=== PATIENT | female | born 2000 | race Caucasian/White ===

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

== ENCOUNTER 2021-04-08 10:36 | Emergency (ER) | payer OTHER ==
[2021-04-08 10:45] VITALS: RESP 18
[2021-04-08] MEDS ORDERED: ONDANSETRON 4 MG/2 ML VIAL IVP STA (11:01)
[2021-04-08] MEDS ORDERED: SODIUM CHLORIDE 0.9% 1,000 ML IV STA (11:02)
[2021-04-08] MEDS ORDERED: KETOROLAC 15 MG/ML 1 ML VIAL IVP STA (11:02)
[2021-04-08 11:35] LABS: Basophils # (A) 0.1 k/uL (0-0.2); Basophils % (A) 1 %; Eosinophils # (A) 0.2 k/uL (0-0.7); Eosinophils % (A) 2 %; HCT 41.7 % (34.0-46.0); HGB 13.6 gm/dL (11.4-16.0); Lymphocytes # (A) 2.2 k/uL (1.0-4.8); Lymphocytes % (A) 18 %; MCH 28.2 pg (25.0-35.0); MCHC 32.7 g/dL (31.0-37.0); MCV 86.3 fL (80.0-100.0); Mean Platelet Volume 6.3; Monocytes # (A) 0.4 k/uL (0-1.0); Monocytes % (A) 4 %; Neutrophils # (A) 9.1 k/uL (1.3-7.7); Neutrophils % (A) 75 %; Platelet Count 306 k/uL (150-450); RBC 4.84 m/uL (3.80-5.40); RDW 12.6 % (11.5-15.5); WBC 12.1 k/uL (4.0-11.0)
[2021-04-08 11:45] LABS: ALT 16 U/L (4-34); AST 21 U/L (14-36); African American GFR (CKD) >90 (>60 ml/min/1.73 sqM); Albumin 4.6 g/dL (3.5-5.0); Alkaline Phosphatase 87 U/L (38-126); Anion Gap 7 mmol/L; Blood Urea Nitrogen 18 mg/dL (7-17); Calcium 9.5 mg/dL (8.4-10.2); Carbon Dioxide 27 mmol/L (22-30); Chloride 106 mmol/L (98-107); Glucose 109 mg/dL (74-99); Non-African American GFR(CKD) >90 (>60 ml/min/1.73 sqM); Potassium 4.6 mmol/L (3.5-5.1); Sodium 140 mmol/L (137-145); Total Bilirubin 0.2 mg/dL (0.2-1.3); Total Protein 7.4 g/dL (6.3-8.2)
[2021-04-08 12:06] LABS: Appearance,Urine Cloudy (Clear); Bacteria,Urine Occasional /hpf; Bilirubin,Urine Negative (Negative); Blood,Urine Large (Negative); Budding Yeast,Urine Many /hpf; Color,Urine Yellow; Glucose,Urine (UA) Negative (Negative); Ketones,Urine Negative (Negative); Leukocyte Esterase,Urine Small (Negative); Nitrite,Urine Negative (Negative); Protein,Urine 1+ (Negative); RBC,Urine >182 /hpf (0-5); Specific Gravity,Urine 1.021 (1.001-1.035); Squamous Epithelial Cell,Urine 8 /hpf (0-4); Urobilinogen,Urine <2.0 mg/dL (<2.0); WBC,Urine 22 /hpf (0-5)
--- NOTE | 2021-04-08 13:08 | US ---
EXAMINATION TYPE: US kidneys/renal and bladder DATE OF EXAM: 04/08/2021 COMPARISON: NONE CLINICAL HISTORY: Left-sided kidney stone suspected. LLQ pain EXAM MEASUREMENTS: Right Kidney: 10.1 x 5.5 x 4.6 cm Left Kidney: 10.7 x 6.0 x 4.9 cm Right Kidney: No hydronephrosis or masses seen Left Kidney: Mild hydronephrosis visualized Bladder: Not distended Kidneys show normal cortical medullary differentiation. Mild right-sided hydronephrosis present. IMPRESSION: Mild left hydronephrosis
--- NOTE | 2021-04-08 13:11 | ED ---
Abdominal Pain HPI - General Chief Complaint: Abdominal Pain Stated Complaint: lower back & abdominal pain Time Seen by Provider: 04/08/21 10:47 Source: patient Mode of arrival: ambulatory Limitations: no limitations - History of Present Illness Initial Comments: 20-year-old female presents emergency Department with a chief complaint of nausea vomiting. Patient reports the pain started early this morning and it was a sudden onset of left flank tenderness. Patient reports some nausea but denies any vomiting or diarrhea. She denies any obstructive or infectious urinary symptoms. Denies hematuria, hematochezia or melena. Denies any fevers or chi lls. Denies any chest pain or shortness of breath. Denies history of kidney stones. Denies any vaginal symptoms or concern for . - Related Data Previous Rx's Medication Instructions Recorded Ondansetron Odt [Zofran Odt] 4 mg PO Q8HR PRN #10 tab 04/08/21 Tamsulosin [Flomax] 0.4 mg PO DAILY #7 cap 04/08/21 Allergies Allergy/AdvReac Type Severity Reaction Status Date / Time No Known Allergies Allergy Verified 04/08/21 12:20 Review of Systems ROS Statement: Those systems with pertinent positive or pertinent negative responses have been documented in the HPI. ROS Other: All systems not noted in ROS Statement are negative. Past Medical History Past Medical History: No Reported History History of Any Multi-Drug Resistant Organisms: None Reported Past Surgical History: No Surgical Hx Reported Past Psychological History: No Psychological Hx Reported Smoking Status: Never smoker Past Alcohol Use History: None Reported Past Drug Use History: Marijuana General Exam Limitations: no limitations General appearance: alert, in no apparent distress Head exam: Present: atraumatic, normocephalic, normal inspection Eye exam: Present: normal appearance, PERRL, EOMI Pupils: Present: normal accommodation ENT exam: Present: normal exam, normal oropharynx, mucous membranes moist Neck exam: Present: normal inspection, full ROM. Absent: tenderness, lymphade nopathy Respiratory exam: Present: normal lung sounds bilaterally. Absent: respiratory distress, wheezes, rales Cardiovascular Exam: Present: regular rate, normal rhythm, normal heart sounds GI/Abdominal exam: Present: soft, tenderness. Absent: distended, guarding, rebound, rigid Extremities exam: Present: normal inspection, full ROM, normal capillary refill Back exam: Present: normal inspection, full ROM, tenderness, CVA tenderness (L) Neurological exam: Present: alert, oriented X3 Psychiatric exam: Present: normal affect, normal mood Skin exam: Present: warm, dry, intact, normal color Course Vital Signs 04/08/21 04/08/21 10:43 13:37 Temperature 97.9 F 98.3 F Pulse Rate 78 79 Respiratory 18 18 Rate Blood Pressure 133/84 128/79 O2 Sat by Pulse 99 99 Oximetry Medical Decision Making - Medical Decision Making 20-year-old female presented emergency department with a chief complaint of nausea vomiting. On physical examination, left CVA tenderness. UA positive for hematuria large amounts of blood. Ultrasound of the kidneys revealed mild left-sided hydronephrosis. Patient reports a prominent pain after analgesia and IV fluids here. She will be discharged with outpatient follow-up. Also give her Flomax Zofran. Return parameters were discussed with patient was understanding and agreeable. Case discussed with Dr. Sage. - Lab Data Result diagrams: 04/08/21 11:21 04/08/21 11:21 Lab Results 04/08/21 04/08/21 04/08/21 Range/Units 11:21 11:21 11:21 WBC 12.1 H (4.0-11.0) k/uL RBC 4.84 (3.80-5.40) m/uL Hgb 13.6 (11.4-16.0) gm/dL Hct 41.7 (34.0-46.0) % MCV 86.3 (80.0-100.0) fL MCH 28.2 (25.0-35.0) pg MCHC 32.7 (31.0-37.0) g/dL RDW 12.6 (11.5-15.5) % Plt Count 306 (150-450) k/uL MPV 6.3 Neutrophils % 75 % Lymphocytes % 18 % Monocytes % 4 % Eosinophils % 2 % Basophils % 1 % Neutrophils # 9.1 H (1.3-7.7) k/uL Lymphocytes # 2.2 (1.0-4.8) k/uL Monocytes # 0.4 (0-1.0) k/uL Eosinophils # 0.2 (0-0.7) k/uL Basophils # 0.1 (0-0.2) k/uL Sodium (137-145) mmol/L Potassium (3.5-5.1) mmol/L Chloride (98-107) mmol/L Carbon Dioxide (22-30) mmol/L Anion Gap mmol/L BUN (7-17) mg/dL Creatinine (0.52-1.04) mg/dL Est GFR (CKD-EPI)AfAm (>60 ml/min/1.73 sqM) Est GFR (CKD-EPI)NonAf (>60 ml/min/1.73 sqM) Glucose (74-99) mg/dL Calcium (8.4-10.2) mg/dL Total Bilirubin (0.2-1.3) mg/dL AST (14-36) U/L ALT (4-34) U/L Alkaline Phosphatase (38-126) U/L Total Protein (6.3-8.2) g/dL Albumin (3.5-5.0) g/dL Urine Color Yellow Urine Appearance Cloudy H (Clear) Urine pH 6.0 (5.0-8.0) Ur Specific [place] 1.021 (1.001-1.035) Urine Protein 1+ H (Negative) Urine Glucose (UA) Negative (Negative) Urine Ketones Negative (Negative) Urine Blood Large H (Negative) Urine Nitrite Negative (Negative) Urine Bilirubin Negative (Negative) Urine Urobilinogen <2.0 (<2.0) mg/dL Ur Leukocyte Esterase Small H (Negative) Urine RBC >182 H (0-5) /hpf Urine WBC 22 H (0-5) /hpf Ur Squamous Epith Cells 8 H (0-4) /hpf Urine Bacteria Occasional H (None) /hpf Urine Yeast (Budding) Many H (None) /hpf Urine HCG, Qual Not Detected (Not Detectd) 04/08/21 Range/Units 11:21 WBC (4.0-11.0) k/uL RBC (3.80-5.40) m/uL Hgb (11.4-16.0) gm/dL Hct (34.0-46.0) % MCV (80.0-100.0) fL MCH (25.0-35.0) pg MCHC (31.0-37.0) g/dL RDW (11.5-15.5) % Plt Count (150-450) k/uL MPV Neutrophils % % Lymphocytes % % Monocytes % % Eosinophils % % Basophils % % Neutrophils # (1.3-7.7) k/uL Lymphocytes # (1.0-4.8) k/uL Monocytes # (0-1.0) k/uL Eosinophils # (0-0.7) k/uL Basophils # (0-0.2) k/uL Sodium 140 (137-145) mmol/L Potassium 4.6 (3.5-5.1) mmol/L Chloride 106 (98-107) mmol/L Carbon Dioxide 27 (22-30) mmol/L Anion Gap 7 mmol/L BUN 18 H (7-17) mg/dL Creatinine 0.90 (0.52-1.04) mg/dL Est GFR (CKD-EPI)AfAm >90 (>60 ml/min/1.73 sqM) Est GFR (CKD-EPI)NonAf >90 (>60 ml/min/1.73 sqM) Glucose 109 H (74-99) mg/dL Calcium 9.5 (8.4-10.2) mg/dL Total Bilirubin 0.2 (0.2-1.3) mg/dL AST 21 (14-36) U/L ALT 16 (4-34) U/L Alkaline Phosphatase 87 (38-126) U/L Total Protein 7.4 (6.3-8.2) g/dL Albumin 4.6 (3.5-5.0) g/dL Urine Color Urine Appearance (Clear) Urine pH (5.0-8.0) Ur Specific [place] (1.001-1.035) Urine Protein (Negative) Urine Glucose (UA) (Negative) Urine Ketones (Negative) Urine Blood (Negative) Urine Nitrite (Negative) Urine Bilirubin (Negative) Urine Urobilinogen (<2.0) mg/dL Ur Leukocyte Esterase (Negative) Urine RBC (0-5) /hpf Urine WBC (0-5) /hpf Ur Squamous Epith Cells (0-4) /hpf Urine Bacteria (None) /hpf Urine Yeast (Budding) (None) /hpf Urine HCG, Qual (Not Detectd) Disposition Clinical Impression: Nephrolithiasis, Hydronephrosis Disposition: HOME SELF-CARE Condition: Stable Instructions (If sedation given, give patient instructions): Kidney Stones (ED) Additional Instructions: Follow-up with urologist. Return to emergency department if symptoms worsen. Take prescribed medication as directed. Prescriptions: Tamsulosin [Flomax] 0.4 mg PO DAILY #7 cap Ondansetron Odt [Zofran Odt] 4 mg PO Q8HR PRN #10 tab PRN Reason: Nausea Is patient prescribed a controlled substance at d/c from ED?: No Referrals: None,Stated [Primary Care Provider] - 1-2 days Reji Aldrich MD [STAFF PHYSICIAN] - 1-2 days Time of Disposition: 13:18
[2021-04-08] MEDS ORDERED: ACET/COD 300 MG/30 MG STARTER PACK 6 TAB BTL PO STA (13:19)
[2021-04-08 13:38] VITALS: BP 128/79; PULSE 79; TEMP 98.3
== END 2021-04-08 13:38 | disposition home or self-care (01) ==
LOC: EC 10:36
DX: N13.2 Hydronephrosis with renal and ureteral calculous obstruction (principal)
CPT/HCPCS: 36415; 80053; 85025; 81001; 81025; 87086; 76770; 99284; 96374; 96375; 96361; J2405; J1885

== ENCOUNTER 2024-01-28 17:17 | Outpatient (CLI) | payer BC, OTHER ==
[2024-01-28 18:32] LABS: Appearance,Urine Clear (Clear); Bacteria,Urine Rare /hpf; Bilirubin,Urine Negative (Negative); Blood,Urine Negative (Negative); Color,Urine Colorless; Glucose,Urine (UA) Negative (Negative); Ketones,Urine Negative (Negative); Leukocyte Esterase,Urine Small (Negative); Mucus,Urine Rare /hpf; Nitrite,Urine Negative (Negative); PH, Urine 5.5 (5.0-8.0); Protein,Urine Negative (Negative); RBC,Urine 1 /hpf (0-5); Specific Gravity,Urine 1.021 (1.001-1.035); Squamous Epithelial Cell,Urine 4 /hpf (0-4); Urobilinogen,Urine <2.0 mg/dL (<2.0); WBC,Urine 4 /hpf (0-5)
[2024-01-28 18:45] VITALS: BP 138/83; PULSE 121; RESP 16; TEMP 97.4
--- NOTE | 2024-03-02 10:24 | P.MSEPDOC ---
Presenting Problems - Arrival Data Date of Arrival on Unit: 01/28/24 Time of Arrival on Unit: 17:17 Mode of Transport: Ambulatory - Complaint OB-Reason for Admission/Chief Complaint: Rule Out PROM Medical History - Information : 1 Para: 0 Term: 0 : 0 Abortions: Spontaneous or Elective: 0 Number of Living Children: 0 - Gestational Age Gestational Age by MIRTHA (wks/days): 33 Weeks and 2 Days - History Complications: GDM Review of Systems - Review of Systems Constitutional: No problems Breast: No problems ENT: No problems Cardiovascular: No problems Respiratory: No problems Gastrointestinal: No problems Genitourinary: No problems Musculoskeletal: No problems Neurological: No problems Skin: No problems Vital Signs - Temperature Temperature: 97.4 F Temperature Source: Temporal Artery Scan - Pulse Right Sitting Pulse Rate: 121 Pulse Assessment Method: Automatic Cuff - Respirations Respiratory Rate: 16 Oxygen Delivery Method: Room Air O2 Sat by Pulse Oximetry: 99 - Blood Pressure Right Arm Blood Pressure: 138/83 Blood Pressure Mean: 101 Blood Pressure Source: Automatic Cuff Medical Screen Scoring - Cervical Exam Membranes: Intact - Uterine Contractions Resting: Soft to palpation - Assessment - Baby A Baseline FHR: 135 Heart Rate - NICHD Category: Category I (Normal) NST: Reactive Physician Notification - Physician Notified Physician Notified Date: 01/28/24 Physician Notified Time: 18:11 Physician: Radha Reid Order Received: Yes (urinalysis, urine culture, d/c home) Maternal Triage Index - Prompt/Priority 3 Prompt Priority 3: Yes Criteria Met for Priority 3: increase vaginal discharge x2 day, negative amnisure, reactive nst, irregular contractions, not felt by pt or palpated Disposition - Disposition OB Disposition: Discharge to home Discharge Date: 01/28/24 Discharge Time: 18:18 I agree with the RN Medical Screening Exam: Yes Physician's MSE Comment: I have neither seen nor examined the patien Case reviewed; plan agreed upon as documented in EMR&OBIX.: Yes Diagnosis: MATERNAL CARE FOR PROBLEM, UNSP, THIRD * DO NOT USE *
== END 2024-01-28 18:18 | disposition home or self-care (01) ==
LOC: FBPOP 17:17
PROVIDERS: ATTEND Obstetrics & Gynecology
DX: O47.03 False labor before 37 completed weeks of gestation, third trimester (principal); Z3A.33 33 weeks gestation of pregnancy
CPT/HCPCS: 59025; 81001; 84112; 87086; 99213

== ENCOUNTER 2024-03-10 15:55 | Inpatient (IN) | payer BC, OTHER ==
[2024-03-10] MEDS: DINOPROSTONE 10 MG INSERT.ER VAGINAL ONE (17:16)
[2024-03-10] MEDS ORDERED: TERBUTALINE 1 MG/ML VIAL SQ PRN (18:03)
[2024-03-10] MEDS ORDERED: METHYLERGONOVINE 0.2 MG/ML 1 ML AMP IM PRN (18:03)
[2024-03-10] MEDS ORDERED: CARBOPROST TROMETHAMINE 250 MCG/ML 1 ML AMP IM PRN (18:03)
[2024-03-10] MEDS ORDERED: OXYTOCIN 10 UNIT/ML 1 ML VIAL IM PRN (18:03)
[2024-03-10] MEDS ORDERED: miSOPROStoL 200 MCG TAB PO PRN (18:03)
[2024-03-10] MEDS ORDERED: LIDOCAINE 0.5% (PF) 5 MG/ML (50 ML SDV) SQ PRN (18:03)
[2024-03-10] MEDS ORDERED: TRANEXAMIC 1,000 MG/100ML-NACL 1,000 MG in EMPTY BAG 1 BAG IV PRN (18:03)
[2024-03-10 18:14] LABS: Basophils % (A) 0 %; Eosinophils # (A) 0.1 k/uL (0-0.7); Eosinophils % (A) 1 %; HCT 37.2 % (34.0-46.0); Lymphocytes # (A) 1.8 k/uL (1.0-4.8); Lymphocytes % (A) 18 %; MCH 28.7 pg (25.0-35.0); MCHC 32.2 g/dL (31.0-37.0); MCV 89.3 fL (80.0-100.0); Mean Platelet Volume 7.9; Monocytes # (A) 0.6 k/uL (0-1.0); Monocytes % (A) 6 %; Neutrophils # (A) 7.5 k/uL (1.3-7.7); Neutrophils % (A) 74 %; Platelet Count 188 k/uL (150-450); RBC 4.16 m/uL (3.80-5.40); RDW 14.4 % (11.5-15.5); WBC 10.2 k/uL (3.8-10.6)
[2024-03-10] MEDS ORDERED: OXYTOCIN 30 UNITS/500 ML NS 30 UNIT in SALINE 1 500ML.BAG IV SCH (18:15)
[2024-03-11] MEDS: LACTATED RINGERS 1,000 ML IV SCH ×2 (02:23→21:20)
[2024-03-11] MEDS: OXYTOCIN 30 UNITS/500 ML NS 30 UNIT in SALINE 1 500ML.BAG IV SCH (07:27)
[2024-03-11] MEDS: NALBUPHINE 10 MG/ML (10 ML MDV) IV PRN (11:42)
[2024-03-11] MEDS ORDERED: SODIUM CHLORIDE 0.9% 250 ML BAG ONE (13:02)
[2024-03-11] MEDS ORDERED: fentaNYL (PF) 50 MCG/ML 5 ML AMP ONE (13:02)
[2024-03-11] MEDS ORDERED: ROPIVACAINE 5 MG/ML 30 ML VIAL ONE (13:02)
[2024-03-11] MEDS ORDERED: OXYTOCIN 10 UNIT/ML 1 ML VIAL IM PRN (19:17)
[2024-03-11] MEDS ORDERED: METHYLERGONOVINE 0.2 MG/ML 1 ML AMP IM PRN (19:17)
[2024-03-11] MEDS ORDERED: CARBOPROST TROMETHAMINE 250 MCG/ML 1 ML AMP IM PRN (19:17)
[2024-03-11] MEDS ORDERED: miSOPROStoL 200 MCG TAB PO PRN (19:17)
[2024-03-11] MEDS ORDERED: TRANEXAMIC 1,000 MG/100ML-NACL 1,000 MG in EMPTY BAG 1 BAG IV PRN (19:17)
[2024-03-11] MEDS: CITRIC ACID-SODIUM CITRATE 15 ML CUP PO ONE (19:25)
[2024-03-11] MEDS ORDERED: ONDANSETRON 4 MG/2 ML VIAL ONE (19:27)
[2024-03-11] MEDS ORDERED: MORPHINE SULFATE (PF) 0.3 MG/0.3 ML SYR ONE (19:27)
[2024-03-11] MEDS ORDERED: OXYTOCIN 30 UNITS/500 ML NS BAG IV ONE (19:27)
[2024-03-11] MEDS ORDERED: fentaNYL (PF) 50 MCG/ML 2 ML AMP ONE (19:27)
--- NOTE | 2024-03-11 20:17 | P.OP ---
Date of Procedure: 03/11/24 Preoperative Diagnosis: IUP at 39 weeks, gestational diabetes, nonreassuring heart tones, persistently late decelerations Postoperative Diagnosis: same, occiput transverse presentation Procedure(s) Performed: Primary low-transverse section Anesthesia: epidural Surgeon: Delicia Plunkett Open Cut Examiner #1: Kailey Post Estimated Blood Loss (ml): 629 IV fluids (ml): 1,000 Urine output (ml): 50 Pathology: none sent Condition: stable Disposition: observation Indications for Procedure: 23-year-old 1 para 0 at 39-3/7 weeks presented to labor and delivery last evening for Cervidil induction of labor. Patient had care complicated by gestational diabetes and late care. Patient was admitted and Cervidil was placed without difficulty. Patient made minimal progress through t he night but was noted to be 3 cm in the morning. Amniotomy was performed and clear fluid was obtained. Patient made slow progress through the day stalling around 1400 at 6 cm. heart tones were noted to be consistent with late decelerations, category 3. Patient was counseled on arrest of dilation, cervical swelling was noted on exam in addition to nonreassuring heart tones. Patient mom and myself discussed findings and agreed to proceed with primary low-transverse section. Operative Findings: Viable male delivered at 1944, weight of 7 pounds 2 ounces, Apgars of 8 and 9 at 1 and 5 minutes respectively. Normal uterus tubes and ovaries were appreciated. noted to be an occiput transverse presentation with significant caput formation Description of Procedure: The patient was prepped and draped in the usual fashion after epidural anesthesia was found to be adequate.. A Pfannenstiel incision was made and extended of the abdominal cavity without difficulty. The bladder peritoneum was elevated and incised and reflected distally. A 2 cm incision was made in the transverse plane of the lower uterine segment to enter the uterus at which time clear fluid was noted. The incision was extended in both directions using the bandage scissors. The head was encountered within the field and delivered up and through the incision where the nose and mouth were thoroughly suctioned. Remainder of the was delivered onto the surgical field where the cord was doubly clamped, cut, and the infant was passed for resuscitative measures with weight and Apgars as noted above. The placenta was delivered manually, intact, and was grossly normal with a grossly normal three-vessel cord. The [place] sb was exteriorized and the interior cavity of the uterus swept of any remaining placental and membranous fragments with a laparotomy sponge. The margins of the incision were grasped with Negron clamps and the incision closed in 2 layers. First layer was a running locking layer of 0 Vicryl from margin to margin followed by a second layer of imbricating 0 Vicryl from margin to margin. Any small points of bleeding were then made hemostatic with the Bovie. Once hemostasis was achieved, the posterior cul-de-sac was suctioned with a guard and the uterine and ovarian findings are as noted above. The uterus was replaced within the abdominal cavity and the gutters swept of any remaining blood fluid or clot. The incision was again reexamined and hemostasis was noted to be excellent. Any small point of bleeding were made hemostatic with the Bovie. Once hemostasis was achieved the parietal peritoneum was loosely reapproximated. The layer of muscles were examined and made hemostatic with the Bovie. Attention was then turned to the fascia which was closed with 2 running stitches of 0 Vicryl proceeding from the lateral margins to the midpoint. The subcutaneous tissues were irrigated, made hemostatic with the Bovie, and reapproximated with a running stitch of 30 plain catgut. The skin was reapproximated with 4-0 Vicryl. Estimated blood loss for the case was approximately 629 mL. All sponge instrument and needle counts are correct. There were no complications. The patient tolerated the procedure well and proceeded to the recovery room in stable condition. Both mother and infant are resting comfortably in recovery.
--- NOTE | 2024-03-11 20:18 | P.HPOB ---
History of Present Illness H&P Date: 03/10/24 Chief Complaint: IUP at 39 weeks, gestational diabetes 23-year-old 1 para 0 at 39 weeks that presents for induction of labor. Patient has known gestational diabetes which has been moderately well-controlled with diet. She did have a late presentation for care. Patient notes good movement denies vaginal bleeding or loss of fluid. blood work this patient has a blood type of O+, rubella status immune, hepatitis B surface engine negative, HIV negative, RPR is nonreactive, group B strep culture is negative. Review of Systems Constitutional: Denies chills, Denies fatigue, Denies fever Ears, nose, mouth and throat: Denies headache Cardiovascular: Reports leg edema Respiratory: Denies dyspnea Gastrointestinal: Denies constipation, Denies diarrhea, Denies nausea, Denies vomiting Genitourinary: Reports Past Medical History Past Medical History: No Reported History History of Any Multi-Drug Resistant Organisms: None Reported Past Surgical History: No Surgical Hx Reported Past Psychological History: No Psychological Hx Reported Smoking Status: Former smoker Past Alcohol Use History: None Reported Past Drug Use History: Marijuana - Past Family History Mother Family Medical History: Cancer Additional Family Medical History / Comment(s): thyroid Medications and Allergies Home Medications Medication Instructions Recorded Confirmed Type Vit No.179/Iron/Folic 1 tab PO DAILY 01/28/24 01/28/24 History [ Tablet] Allergies Allergy/AdvReac Type Severity Reaction Status Date / Time No Known Allergies Allergy Verified 01/28/24 17:43 Exam Osteopathic Statement: *. No significant issues noted on an osteopathic structural exam other than those noted in the History and Physical/Consult. Vital Signs Temp Pulse Resp BP Pulse Ox 03/10/24 16:12 96.7 F L 115 H 18 152/80 98 Intake and Output 03/10/24 03/10/24 03/10/24 06:59 14:59 22:59 Other: Weight 108.862 kg Targeted physical exam is performed this date in general this is a well- nourished well-developed female in no acute distress, breathing is noted to be nonlabored, heart has a regular and rhythm, abdomen is gravid, on cervical exam she is 1/50/-2 station vertex presentation, heart tones are noted to be category 1 and she is tracy irregularly. Results Result Diagrams: 03/10/24 17:30 Assessment and Plan (1) Term Current Visit: Yes Status: Acute Code(s): Z34.90 - ENCNTR FOR SUPRVSN OF NORMAL , UNSP, UNSP TRIMESTER SNOMED Code(s): 47012176 (2) Gestational diabetes Current Visit: Yes Status: Acute Code(s): O24.419 - GESTATIONAL DIABETES MELLITUS IN , UNSP CONTROL SNOMED Code(s): 22242582 Plan: 23-year-old G1, P0 at 39 weeks of presents for induction of labor. Given patient's unfavorable cervix at 1 cm Cervidil induction is discussed and patient agrees. Cervidil was placed without difficulty. Options for analgesia are discussed including Nubain, epidural, nitrous. She will consider.
[2024-03-11] MEDS ORDERED: SIMETHICONE 80 MG CHEWABLE PO PRN (20:32)
[2024-03-11] MEDS ORDERED: ZOLPIDEM 5 MG TAB PO PRN (20:32)
[2024-03-11] MEDS ORDERED: diphenhydrAMINE 50 MG CAP PO PRN (20:32)
[2024-03-11] MEDS ORDERED: diphenhydrAMINE 25 MG CAP PO PRN (20:32)
[2024-03-11] MEDS ORDERED: METOCLOPRAMIDE 5 MG/ML 2 ML VIAL IVP PRN (20:32)
[2024-03-11] MEDS ORDERED: diphenhydrAMINE 50 MG/ML 1 ML VIAL IVP PRN ×2 (20:32)
[2024-03-11] MEDS ORDERED: NALOXONE 0.4 MG/ML 1 ML VIAL IV PRN (20:32)
[2024-03-11] MEDS ORDERED: ONDANSETRON 4 MG/2 ML VIAL IVP PRN (20:32)
[2024-03-11] MEDS: ACETAMINOPHEN IV (For NPO) 1,000 MG in EMPTY BAG 1 BAG IVPB SCH (21:14)
[2024-03-11] MEDS: SENNOSIDES-DOCUSATE SODIUM 1 EACH TAB PO SCH (21:20)
[2024-03-12] MEDS: IBUPROFEN IV 800 MG in SODIUM CHLORIDE 0.9% 250 ML IV SCH (00:17)
[2024-03-12] MEDS: ACETAMINOPHEN TAB 500 MG TAB PO SCH (00:19)
[2024-03-12] MEDS: IBUPROFEN 600 MG TAB PO SCH (03:45)
[2024-03-12 07:35] LABS: Basophils % (A) 0 %; Eosinophils # (A) 0.1 k/uL (0-0.7); Eosinophils % (A) 1 %; HCT 31.9 % (34.0-46.0); HGB 10.2 gm/dL (11.4-16.0); Lymphocytes # (A) 1.6 k/uL (1.0-4.8); Lymphocytes % (A) 17 %; MCH 29.2 pg (25.0-35.0); MCHC 32.1 g/dL (31.0-37.0); MCV 91.1 fL (80.0-100.0); Mean Platelet Volume 7.9; Monocytes # (A) 0.6 k/uL (0-1.0); Monocytes % (A) 6 %; Neutrophils # (A) 7.2 k/uL (1.3-7.7); Neutrophils % (A) 75 %; Platelet Count 153 k/uL (150-450); RDW 14.4 % (11.5-15.5); WBC 9.6 k/uL (3.8-10.6)
[2024-03-12] MEDS: PRENATAL VIT-IRON-FOLIC ACID 1 EACH TABLET PO SCH (07:54)
--- NOTE | 2024-03-12 08:21 | P.PN ---
Progress Note - Text 03/12/24 631am 33-year-old female status post and was dosed with Duramorph via the epidural. Patient seen and evaluated for postop pain control, patient has a VAS of 3 with no complaints of nausea vomiting she does have pruritus which should subside soon
--- NOTE | 2024-03-12 10:00 | P.PNOBGPC ---
Subjective - Subjective Principal diagnosis: Postop day 1, primary Interval history: Patient is doing well overall. is in the nursery for evaluation. She states her pain is well-controlled, bleeding is minimal to moderate. She denies concerns this morning Patient reports: Reports appetite normal, Reports pain well controlled, Reports ambulating normally : doing well (Special care nursery) Objective - Vital Signs Latest vital signs: Vital Signs Temp Pulse Resp BP Pulse Ox 03/12/24 07:50 98.6 F 94 16 110/74 97 03/12/24 04:00 87 18 111/74 98 03/11/24 22:20 98.1 F 79 16 136/72 98 03/11/24 22:05 93 16 134/78 97 03/11/24 21:50 88 16 122/66 96 03/11/24 21:35 86 16 124/65 97 03/11/24 21:20 90 16 119/67 98 03/11/24 21:05 82 16 127/70 95 03/11/24 20:50 87 16 142/61 96 03/11/24 20:35 80 16 128/66 95 03/11/24 20:20 96.5 F L 86 16 123/65 96 Intake and Output 03/11/24 03/12/24 03/12/24 22:59 06:59 14:59 Output Total 1335 400 Balance -1335 -400 Output: Urine 600 400 Uretheral (Bowman) 400 Output, Quantitative 735 Blood Loss Other: Voiding Method Indwelling Catheter Indwelling Catheter - Exam Extremities: Present: normal, edema Abdomen: Present: normal appearance, soft Incision: Present: normal, dry Uterus: Present: normal, firm - Labs Labs: Abnormal Lab Results - Last 24 Hours (Table) 03/12/24 Range/Units 07:16 RBC 3.50 L (3.80-5.40) m/uL Hgb 10.2 L (11.4-16.0) gm/dL Hct 31.9 L (34.0-46.0) % Assessment and Plan (1) Term Current Visit: Yes Status: Acute Code(s): Z34.90 - ENCNTR FOR SUPRVSN OF NORMAL , UNSP, UNSP TRIMESTER SNOMED Code(s): 14113879 (2) Gestational diabetes Current Visit: Yes Status: Acute Code(s): O24.419 - GESTATIONAL DIABETES MELLITUS IN , UNSP CONTROL SNOMED Code(s): 68175132 (3) Arrest of descent, delivered, current hospitalization Current Visit: Yes Status: Acute Code(s): O62.1 - SECONDARY UTERINE INERTIA SNOMED Code(s): 78677825 (4) Non-reassuring status Current Visit: Yes Status: Acute Code(s): VES8283 - SNOMED Code(s): 276952881 (5) Status post section Current Visit: Yes Status: Acute Code(s): Z98.891 - HISTORY OF UTERINE SCAR FROM PREVIOUS SURGERY SNOMED Code(s): 095640002 Plan: Patient is doing well postoperatively. Will encourage increased ambulation, awaiting spontaneous void. Plan to continue routine postoperative care.
--- NOTE | 2024-03-13 08:27 | P.PNOBGPC ---
Subjective - Subjective Principal diagnosis: Postop day 2, primary Interval history: Patient is doing well this morning. She is ambulating and voiding without difficulty. Pain is well-controlled. Infant remains in the nursery and she has been ambulating back and forth for feeds. Lochia is minimal to moderate. Patient reports: Reports appetite normal, Reports voiding normally, Reports pain well controlled, Reports ambulating normally : doing well (Remains in special care nursery on IV fluids for blood sugar management) Objective - Vital Signs Latest vital signs: Vital Signs Temp Pulse Resp BP Pulse Ox 03/13/24 01:34 98.8 F 16 136/78 03/12/24 20:56 98.7 F 98 16 136/75 99 03/12/24 16:00 98.5 F 110 H 16 125/68 98 03/12/24 11:52 98.5 F 100 18 118/61 97 Intake and Output 03/12/24 03/13/24 03/13/24 22:59 06:59 14:59 Output Total 100 Balance -100 Output: Urine 100 Other: # Voids 1 1 # Bowel Movements 1 - Exam Extremities: Present: normal, edema Abdomen: Present: normal appearance, soft Incision: Present: normal, dry, intact Uterus: Present: normal, firm Assessment and Plan (1) Term Current Visit: Yes Status: Acute Code(s): Z34.90 - ENCNTR FOR SUPRVSN OF NORMAL , UNSP, UNSP TRIMESTER SNOMED Code(s): 52822246 (2) Gestational diabetes Current Visit: Yes Status: Acute Code(s): O24.419 - GESTATIONAL DIABETES MELLITUS IN , UNSP CONTROL SNOMED Code(s): 77469824 (3) Arrest of descent, delivered, current hospitalization Current Visit: Yes Status: Acute Code(s): O62.1 - SECONDARY UTERINE INERTIA SNOMED Code(s): 21633507 (4) Non-reassuring status Current Visit: Yes Status: Acute Code(s): BOU6623 - SNOMED Code(s): 664271548 (5) Status post section Current Visit: Yes Status: Acute Code(s): Z98.891 - HISTORY OF UTERINE SCAR FROM PREVIOUS SURGERY SNOMED Code(s): 341557557 Plan: Patient is doing well postoperatively. Continue routine postoperative care
--- NOTE | 2024-03-14 08:20 | P.PNOBGPC ---
Subjective - Subjective Principal diagnosis: POD#3 s/p section Interval history: The patient is doing well this morning and had no acute events overnight. She has no complaints this morning. She reports minimal lochia, passing flatus, voiding without difficulty, ambulating, and eating/drinking without nausea or vomiting. She is her infant without difficulty. Infant is in the nursery at this time. She denies chest pain, shortness of breathing, fevers, or chills overnight. She denies pain or swelling in the legs. Patient reports: Reports appetite normal, Reports voiding normally, Reports pain well controlled, Reports ambulating normally Howard: doing well, other (in nursery) Objective - Vital Signs Latest vital signs: Vital Signs Temp Pulse Resp BP Pulse Ox 03/13/24 23:57 98.6 F 99 17 141/85 100 03/13/24 16:00 98.6 F 94 15 129/84 98 03/13/ 09:00 98.9 F 92 16 136/88 98 - Exam Extremities: Present: normal Abdomen: Present: normal appearance, soft Incision: Present: normal, dry, intact Uterus: Present: normal, firm Assessment and Plan Assessment: 23 year old now POD#3 s/p primary section 2/2 Category 3 FHTs remote from delivery Plan: 1. Postoperative. Meeting all postoperative milestones appropriately. 2. Viable male infant. Doing well in the nursery. Needs circumcision, likely tomorrow. Dispo: Anticipate discharge home tomorrow on postoperative day #4. Continue inpatient monitoring at this time.
[2024-03-14 09:09] VITALS: RESP 16
[2024-03-15] MEDS: LABETALOL 100 MG TAB PO SCH (00:33)
[2024-03-15 09:06] VITALS: BP 136/82; PULSE 87; TEMP 98.3
--- NOTE | 2024-03-15 10:13 | P.DS ---
Providers Date of admission: 03/10/24 15:55 Expected date of discharge: 03/15/24 Attending physician: Delicia Plunkett Primary care physician: Stated None Hospital Course: Ms. Bedolla is a 23 year old now POD#4 s/p primary section for Category III heart tones remote from delivery. The patient is doing well this morning and had no acute events overnight. She has no complaints this morning. She reports minimal lochia, passing flatus, voiding without difficulty, ambulating, and eating/drinking without nausea or vomiting. Infant is in the nursery, is not ready for discharge at this time and still need circumcision. S he denies chest pain, shortness of breathing, fevers, or chills overnight. She denies pain or swelling in the legs. Postoperative restrictions are reviewed with the patient including pelvic rest for 6 weeks, no lifting heavier than 15 pounds for 6 weeks. The patient is encouraged to call the office if she experiences any heavy bleeding, foul-smelling discharge, breast complaints, or any if she has any other concerns. She will follow up in the office with Dr. Plunkett in 2 weeks for postoperative exam. The patient will go home with prescriptions for Motrin and Tylenol, she declines narcotics. All questions are answered. Assessment: 23 year old POD#4 s/p primary Patient Condition at Discharge: Good Plan - Discharge Summary New Discharge Prescriptions: New Ibuprofen [Motrin] 600 mg PO Q6HR PRN #30 tab PRN Reason: Mild Pain (Scale 1 To 3) Acetaminophen Tab [Tylenol] 650 mg PO Q6H PRN #30 tab PRN Reason: Mild Pain (Scale 1 To 3) No Action Vit No.179/Iron/Folic [ Tablet] 1 tab PO DAILY Discharge Medication List Vit No.179/Iron/Folic [ Tablet] 1 tab PO DAILY 01/28/24 [History] Acetaminophen Tab [Tylenol] 650 mg PO Q6H PRN #30 tab 03/15/24 [Rx] Ibuprofen [Motrin] 600 mg PO Q6HR PRN #30 tab 03/15/24 [Rx] Follow up Appointment(s)/Referral(s): Delicia Plunkett DO [Doctor of Osteopathic Medicine] - 04/21/24 11:15 am (Post C/S Appointment 03-24-2024 at 2:00pm) Discharge Disposition: HOME SELF-CARE
== END 2024-03-15 16:45 | disposition home or self-care (01) | DRG 788 ==
LOC: 4FBP 15:55
PROVIDERS: ADMIT Obstetrics & Gynecology Obstetrics; ATTEND Obstetrics & Gynecology Obstetrics
PROC: 3E0P7VZ Introduction of Hormone into Female Reproductive, Via Natural or Artificial Opening (ICD-10-PCS; principal; 2024-03-11 19:30)
PROC: 10D00Z1 Extraction of Products of Conception, Low, Open Approach (ICD-10-PCS; principal; 2024-03-11 19:30)
PROC: 10907ZC Drainage of Amniotic Fluid, Therapeutic from Products of Conception, Via Natural or Artificial Opening (ICD-10-PCS; principal; 2024-03-11 19:30)
DX: O24.420 Gestational diabetes mellitus in childbirth, diet controlled (principal); O32.2XX0 Maternal care for transverse and oblique lie, not applicable or unspecified; O62.1 Secondary uterine inertia; O62.0 Primary inadequate contractions; O76 Abnormality in fetal heart rate and rhythm complicating labor and delivery; Z37.0 Single live birth; Z3A.39 39 weeks gestation of pregnancy; Z87.891 Personal history of nicotine dependence; Z28.310 Unvaccinated for COVID-19
CPT/HCPCS: 85025; 86850; 86900; 86901

== ENCOUNTER 2025-01-21 23:35 | Emergency (ER) | payer BC ==
[2025-01-21 23:41] VITALS: TEMP 97.4
--- NOTE | 2025-01-22 00:30 | ED ---
Animal Bite HPI - General Chief Complaint: Animal Bite Stated Complaint: Dog bite Time Seen by Provider: 01/22/25 00:18 Source: patient, RN notes reviewed Mode of arrival: ambulatory Limitations: no limitations - History of Present Illness Initial Comments: This is a 24-year-old female who presents to the emergency department for a dog bite to the right hand. States that it occurred right before arrival. Her friend just got a new pitbull mix and she went to go meet the dog for the first time. It ended up biting her right hand in the process. Unsure when her last tetanus vaccine was. The dog is up-to-date on all of its vaccinations including rabies. Complaint: animal bite - Related Data Home Medications Medication Instructions Recorded Confirmed Vit No.179/Iron/Folic 1 tab PO DAILY 01/28/24 01/28/24 [ Tablet] Previous Rx's Medication Instructions Recorded Acetaminophen Tab [Tylenol] 650 mg PO Q6H PRN #30 tab 03/15/24 Ibuprofen [Motrin] 600 mg PO Q6HR PRN #30 tab 03/15/24 Amoxic-Pot Clav 875-125Mg 1 tab PO Q12HR 10 Days #20 tab 01/22/25 [Augmentin 875-125] Ibuprofen [Motrin] 800 mg PO Q8H PRN #30 tab 01/22/25 Allergies Allergy/AdvReac Type Severity Reaction Status Date / Time No Known Allergies Allergy Verified 01/21/25 23:37 Review of Systems ROS Statement: Those systems with pertinent positive or pertinent negative responses have been documented in the HPI. ROS Other: All systems not noted in ROS Statement are negative. Past Medical History Past Medical History: No Reported History History of Any Multi-Drug Resistant Organisms: None Reported Past Surgical History: Section Past Psychological History: No Psychological Hx Reported Smoking Status: Vaper Past Alcohol Use History: None Reported Past Drug Use History: Marijuana - Past Family History Mother Family Medical History: Cancer Additional Family Medical History / Comment(s): thyroid General Exam Limitations: no limitations General appearance: alert, in no apparent distress Head exam: Present: atraumatic, normocephalic, normal inspection Respiratory exam: Present: normal lung sounds bilaterally. Absent: respiratory distress, wheezes, rales, rhonchi, stridor Cardiovascular Exam: Present: regular rate, normal rhythm, normal heart sounds. Absent: systolic murmur, diastolic murmur, rubs, gallop, clicks Extremities exam: Present: other (Scattered puncture wounds to the right hand. Swelling and ecchymosis to the dorsal aspect of the right hand. No active bleeding. Full range of motion of all 5 digits.) Neurological exam: Present: alert, oriented X3, CN II-XII intact Psychiatric exam: Present: normal affect, normal mood Course Vital Signs 01/21/25 01/22/25 23:37 02:22 Temperature 97.4 F L Pulse Rate 98 89 Respiratory 18 15 Rate Blood Pressure 158/107 132/87 O2 Sat by Pulse 100 100 Oximetry Medical Decision Making - Medical Decision Making This is a 24 year old female who presents to the emergency department for a dog bite. Was pt. sent in by a medical professional or institution? @ -No Did you speak to anyone other than the patient for history? @ -No Did you review nursing and triage notes? @ -Yes, and I agree, it is accurate with regards to the patient's symptoms. Were old charts reviewed? @ -No Differential Diagnosis? @ -Fracture, abrasion, cellulitis, abscess, this is not meant to be an all- inclusive list. EKG interpreted by me (3pts min.)? @ -Not obtained X-rays interpreted by me (1pt min.)? @ -X-ray of the right hand obtained. My interpretation identifies no acute fractures. CT interpreted by me (1pt min.)? @ -Not obtained U/S interpreted by me (1pt. min.)? @ -Not obtained What testing was considered but not performed? (CT, X-rays, U/S, labs)? Why? @ -None What meds were considered but not given? Why? @ -None Did you discuss the management of the patient with other professionals? @ -No Did you reconcile home meds? @ -No Was smoking cessation discussed for >3mins.? @ -No Was critical care preformed (if so, how long)? @ -No Were there social determinants of health that impacted care today? How? (Homelessness, low income, unemployed, alcoholism, drug addiction, transportation, low edu. Level, literacy, decrease access to med. care, senior care, rehab)? @ -No Was there de-escalation of care discussed even if they declined? (Discuss DNR or withdrawal of care, Hospice)? @ -No What co-morbidities impacted this encounter? (DM, HTN, Smoking, COPD, CAD, Cancer, CVA, Hep., AIDS, mental health diagnosis, sleep apnea, morbid obesity)? @ -None Was patient admitted / discharged? @ -Discharged. X-ray of the right hand obtained revealing no acute fractures. Her hand was soaked in water mixed with Betadine to thoroughly cleanse the wounds and her hand was then bandaged. Tetanus vaccine was updated. The dog is up-to-date on its vaccinations, including the rabies vaccine. She had scattered superficial puncture wounds, none of which required repair. Initial dose of Augmentin administered in the emergency department. Prescription for Augmentin and ibuprofen provided. Discussed with the patient that these wounds are very prone to infection and would necessitate the need for her to return to the emergency department. Patient discharged home in stable condition. Case discussed with ED attending Dr. Desai. Return precautions reviewed in depth, the patient is instructed to return to the emergency department with any new, worsening, or concerning symptoms. Patient verbalized understanding. Undiagnosed new problem with uncertain prognosis? @ -None Drug Therapy requiring intensive monitoring for toxicity (Heparin, Nitro, Insulin, Cardizem)? @ -None Were any procedures done? @ -None Diagnosis/symptom? @ -Dog bite to right hand Acute, or Chronic, or Acute on Chronic? @ -Acute Uncomplicated (without systemic symptoms) or Complicated (systemic symptoms)? @ -Uncomplicated Side effects of treatment? @ -None Exacerbation, Progression, or Severe Exacerbation] @ -Not applicable Poses a threat to life or bodily function? @ -Unlikely - Radiology Data Radiology results: report reviewed, image reviewed Disposition Clinical Impression: Dog bite Disposition: HOME SELF-CARE Instructions (If sedation given, give patient instructions): Animal Bite (ED) Additional Instructions: Return to the emergency department with any new, worsening, or concerning symptoms. Take the antibiotic as prescribed for 10 days. Alternate with ibuprofen and Tylenol as needed for pain relief. Follow up with your primary care provider in 1-2 days. Prescriptions: Amoxic-Pot Clav 875-125Mg [Augmentin 875-125] 1 tab PO Q12HR 10 Days #20 tab Ibuprofen [Motrin] 800 mg PO Q8H PRN #30 tab PRN Reason: Pain Is patient prescribed a controlled substance at d/c from ED?: No Referrals: Chris Hernández MD [Primary Care Provider] - 1-2 days Time of Disposition: 01:51
[2025-01-22] MEDS: HYDROcodone/APAP 7.5-325MG 1 EACH TAB PO ONE (00:48)
[2025-01-22] MEDS: AMOXIC-POT CLAV 875-125MG 1 EACH TAB PO STA (00:48)
[2025-01-22] MEDS: DIPH,PERTUS(ACELL)TETVAC-LF 0.5 ML VIAL IM ONE (00:49)
[2025-01-22] MEDS: IBUPROFEN 800 MG TAB PO STA (00:49)
--- NOTE | 2025-01-22 01:16 | XR ---
EXAM: XR Right Hand Complete, 3 or More Views CLINICAL HISTORY: ITS.REASON XR Reason: dog bite, edema TECHNIQUE: Frontal, lateral and oblique views of the right hand. COMPARISON: No relevant prior studies available. FINDINGS: Bones/joints: No acute fracture. No dislocation. Soft tissues: Diffuse soft tissue swelling. No radiopaque foreign body. IMPRESSION: Diffuse soft tissue swelling. No radiopaque foreign body.
[2025-01-22] MEDS: ACET/COD 300 MG/30 MG STARTER PACK 6 TAB BTL PO STA (02:08)
[2025-01-22 02:23] VITALS: BP 132/87; PULSE 89; RESP 15
== END 2025-01-22 02:23 | disposition home or self-care (01) ==
LOC: EC 23:35
DX: S61.451A Open bite of right hand, initial encounter (principal); F17.290 Nicotine dependence, other tobacco product, uncomplicated; W54.0XXA Bitten by dog, initial encounter
CPT/HCPCS: 90471; 90715; 99283